=== PATIENT | male | born 1970 | race Caucasian/White ===

== ENCOUNTER 2018-12-14 08:35 | Outpatient (REF) | payer BC, SELFPAY ==
[2018-12-14 12:39] LABS: ALT 42 U/L (12-78); AST 24 U/L (15-37); Albumin 4.4 g/dL (3.4-5.0); Alkaline Phosphatase 34 U/L (46-116); Anion Gap 11.8 mmol/L (3-11); BUN 17 mg/dL (7-18); Bilirubin, Total 1.8 mg/dL (0.2-1.0); CO2 29.2 mmol/L (21.0-32.0); CREATININE 1.03 mg/dL (0.70-1.30); Calcium 9.5 mg/dL (8.5-10.1); Chloride 99 mmol/L (98-107); Cholesterol 280 mg/dL (50-200); Glucose 115 mg/dL (70-100); HDL Cholesterol 90 mg/dL (40-60); LDL CHOLESTEROL 176 mg/dL (<100); Potassium 4.4 mmol/L (3.5-5.1); Sodium 140 mmol/L (136-145); Total Protein 7.7 g/dL (6.4-8.2); Triglyceride 46 mg/dL (30-150)
== END 2018-12-14 08:55 ==
LOC: NCHCN 08:35
PROVIDERS: PCP Nurse Practitioner Family; Visit Provider Nurse Practitioner Family
DX: I10 Essential (primary) hypertension (principal); F41.9 Anxiety disorder, unspecified; J45.30 Mild persistent asthma, uncomplicated; F17.200 Nicotine dependence, unspecified, uncomplicated; F32.9 Major depressive disorder, single episode, unspecified
CPT/HCPCS: 80053; 80061; 83721

== ENCOUNTER 2019-11-30 14:02 | Outpatient (REF) | payer BC, SELFPAY ==
[2019-12-01 14:08] LABS: COVID-19 RT-PCR UVMMC Result Negative (Negative)
== END 2019-11-30 14:22 ==
LOC: LBN 14:02
PROVIDERS: PCP Nurse Practitioner Family; Visit Provider Nurse Practitioner Adult Health
DX: Z11.59 Encounter for screening for other viral diseases (principal)
CPT/HCPCS: U0003

== ENCOUNTER 2020-07-26 11:44 | Outpatient (REF) | payer OTHER, SELFPAY ==
[2020-07-26 14:15] LABS: Anion Gap 9.5 mmol/L (3-11); BUN 14 mg/dL (7-18); CO2 26.5 mmol/L (21.0-32.0); CREATININE 1.08 mg/dL (0.70-1.30); Calcium 9.2 mg/dL (8.5-10.1); Calculated LDL 178 mg/dL (<100); Chloride 103 mmol/L (98-107); Cholesterol 250 mg/dL (<200); Glucose 104 mg/dL (74-106); HDL Cholesterol 59 mg/dL (40-60); Potassium 4.5 mmol/L (3.5-5.1); Sodium 139 mmol/L (136-145); Triglyceride 67 mg/dL (<150)
[2020-07-26 22:09] LABS: PSA, Screening 1.9 ng/mL (0.0-2.5)
== END 2020-07-26 12:04 ==
LOC: NCHCN 11:44
PROVIDERS: PCP Nurse Practitioner Family; Visit Provider Nurse Practitioner Family
DX: I10 Essential (primary) hypertension (principal); E78.5 Hyperlipidemia, unspecified; Z12.5 Encounter for screening for malignant neoplasm of prostate; Z80.42 Family history of malignant neoplasm of prostate
CPT/HCPCS: 80048; 80061; 84153

== ENCOUNTER 2022-05-30 14:46 | Outpatient (REF) | payer SELFPAY ==
[2022-05-30 17:57] LABS: HCT 42.5 % (40.0-50.0); HGB 14.5 g/dL (13.5-17.5); MCH 32.3 pg (27.0-33.0); MCHC 34.1 % (32.0-36.0); MCV 95 fL (80-95); MPV 9.9 fL (8.0-11.0); Platelet Count 161 10^3/uL (130-400); RBC 4.49 10^6/uL (4.36-5.78); RDW 13.4 % (11.8-14.1); RDW-SD 46.9 fL; WBC 7.15 10^3/uL (4.4-10.8)
[2022-05-30 18:33] LABS: ALT 73 U/L (16-63); AST 58 U/L (15-37); Albumin 4.3 g/dL (3.4-5.0); Alkaline Phosphatase 30 U/L (46-116); Anion Gap 18.6 mmol/L (3-11); BUN 19 mg/dL (7-18); Bilirubin, Total 2.1 mg/dL (0.2-1.0); CO2 20.4 mmol/L (21.0-32.0); CREATININE 0.9 mg/dL (0.70-1.30); Calcium 9.1 mg/dL (8.5-10.1); Calculated LDL 108 mg/dL (<100); Chloride 93 mmol/L (98-107); Cholesterol 220 mg/dL (<200); Glucose 80 mg/dL (74-106); HDL Cholesterol 101 mg/dL (40-60); Potassium 3.8 mmol/L (3.5-5.1); Sodium 132 mmol/L (136-145); Total Protein 7.8 g/dL (6.4-8.2); Triglyceride 56 mg/dL (<150)
== END 2022-05-30 14:47 | disposition home or self-care (01) ==
LOC: NCHCN 14:46
PROVIDERS: PCP Nurse Practitioner Family; Visit Provider Nurse Practitioner Family
DX: E78.5 Hyperlipidemia, unspecified (principal); I10 Essential (primary) hypertension; Z00.00 Encounter for general adult medical examination without abnormal findings
CPT/HCPCS: 80053; 80061; 85027

== ENCOUNTER 2023-11-26 05:20 | Outpatient (CLI) | payer BC, SELFPAY ==
[2023-11-26 16:15] LABS: HCT 55.3 % (40.0-50.0); HGB 18.5 g/dL (13.5-17.5); MCH 29.1 pg (27.0-33.0); MCHC 33.5 % (32.0-36.0); MCV 87 fL (80-95); MPV 11.5 fL (8.0-11.0); Platelet Count 244 10^3/uL (130-400); RDW 14.2 % (11.8-14.1); RDW-SD 45.1 fL; WBC 7.77 10^3/uL (4.4-10.8)
[2023-11-26 16:56] LABS: ALT 52 U/L (16-63); AST 26 U/L (15-37); Albumin 4.2 g/dL (3.4-5.0); Alkaline Phosphatase 36 U/L (46-116); Anion Gap 9.3 mmol/L (3-11); BUN 11 mg/dL (7-18); Bilirubin, Total 0.6 mg/dL (0.2-1.0); CO2 29.7 mmol/L (21.0-32.0); Calcium 9.4 mg/dL (8.5-10.1); Chloride 101 mmol/L (98-107); Estimated GFR 90.56 (mL/min/1.73m2); Glucose 92 mg/dL (74-106); Potassium 4.4 mmol/L (3.5-5.1); Sodium 140 mmol/L (136-145); Total Protein 7.7 g/dL (6.4-8.2)
[2023-11-26 18:28] LABS: RBC 6.36 10^6/uL (4.36-5.78)
[2023-11-26 23:28] LABS: Folate 7.9 ng/mL (See Note)
[2023-11-26 23:34] LABS: Vitamin B12 458 pg/mL (211-911)
[2023-12-02 12:40] LABS: Thiamine (Vitamin B1), WB 144 nmol/L (70-180)
== END 2023-11-26 05:21 | disposition home or self-care (01) ==
PROVIDERS: PCP Student in an Organized Health Care Education/Training Program; Visit Provider Student in an Organized Health Care Education/Training Program
DX: F10.20 Alcohol dependence, uncomplicated (principal)
CPT/HCPCS: 36415; 80053; 84153; 85027; 82607; 82746; 84425

== ENCOUNTER 2023-12-10 10:45 | Outpatient (REF) | payer BC, SELFPAY ==
[2023-12-10 15:08] LABS: Abs Immature Grans 0.03 10^3/uL (0.0-0.06); Absolute Basophil Count 0.11 10^3/uL (0.0-0.2); Absolute Eosinophil Count 0.34 10^3/uL (0.0-0.7); Absolute Lymphocyte Count 2.54 10^3/uL (1.2-3.4); Absolute Monocyte Count 0.82 10^3/uL (0.1-0.8); Absolute Neutrophil Count 4.86 10^3/uL (1.2-6.7); Basophils % 1.3 %; Eosinophils % 3.9 %; HCT 52.1 % (40.0-50.0); HGB 17.3 g/dL (13.5-17.5); Immature Grans % 0.3 %; Lymphocytes % 29.2 %; MCH 29.1 pg (27.0-33.0); MCHC 33.2 % (32.0-36.0); MCV 88 fL (80-95); MPV 11.2 fL (8.0-11.0); Monocytes % 9.4 %; Neutrophils % 55.9 %; Platelet Count 247 10^3/uL (130-400); RBC 5.95 10^6/uL (4.36-5.78); RDW 13.8 % (11.8-14.1); RDW-SD 44.2 fL
[2023-12-10 15:20] LABS: Bilirubin Negative (Negative); Blood Negative (Negative); Clarity Clear (Clear); Glucose Negative (Negative); Ketones Negative (Negative); Leukocyte Esterase Negative (Negative); Nitrite Negative (Negative); Specific Gravity 1.025 (1.005-1.025); Urobilinogen 0.2 mg/dL (Up to 0.2)
[2023-12-10 15:46] LABS: ALT 37 U/L (16-63); AST 20 U/L (15-37); Albumin 3.9 g/dL (3.4-5.0); Alkaline Phosphatase 37 U/L (46-116); Anion Gap 13.1 mmol/L (3-11); BUN 23 mg/dL (7-18); Bilirubin, Total 0.5 mg/dL (0.2-1.0); CO2 22.9 mmol/L (21.0-32.0); CREATININE 0.8 mg/dL (0.70-1.30); Chloride 103 mmol/L (98-107); Estimated GFR 106.48 (mL/min/1.73m2); Glucose 92 mg/dL (74-106); Potassium 4.7 mmol/L (3.5-5.1); Sodium 139 mmol/L (136-145)
[2023-12-12 13:26] LABS: Erythropoietin 5.8 mIU/mL (2.6 - 18.5)
== END 2023-12-10 10:46 | disposition home or self-care (01) ==
LOC: NCHCN 10:45
PROVIDERS: PCP Student in an Organized Health Care Education/Training Program; Visit Provider Student in an Organized Health Care Education/Training Program
DX: D75.1 Secondary polycythemia (principal)
CPT/HCPCS: 80053; 82668; 81003; 85025

== ENCOUNTER 2024-02-16 19:12 | Outpatient (REF) | payer BC, SELFPAY ==
[2024-02-16 19:32] LABS: Abs Immature Grans 0.04 10^3/uL (0.0-0.06); Absolute Basophil Count 0.05 10^3/uL (0.0-0.2); Absolute Eosinophil Count 0.15 10^3/uL (0.0-0.7); Absolute Lymphocyte Count 1.87 10^3/uL (1.2-3.4); Absolute Monocyte Count 0.47 10^3/uL (0.1-0.8); Absolute Neutrophil Count 3.95 10^3/uL (1.2-6.7); Basophils % 0.8 %; Eosinophils % 2.3 %; HCT 48.1 % (40.0-50.0); Immature Grans % 0.6 %; Lymphocytes % 28.6 %; MCH 29.2 pg (27.0-33.0); MCHC 33.3 % (32.0-36.0); MCV 88 fL (80-95); MPV 11.2 fL (8.0-11.0); Monocytes % 7.2 %; Neutrophils % 60.5 %; Platelet Count 271 10^3/uL (130-400); RBC 5.48 10^6/uL (4.36-5.78); RDW 14.2 % (11.8-14.1); RDW-SD 45.5 fL; WBC 6.53 10^3/uL (4.4-10.8)
[2024-02-16 20:11] LABS: ALT 40 U/L (16-63); AST 17 U/L (15-37); Albumin 4.1 g/dL (3.4-5.0); Alkaline Phosphatase 35 U/L (46-116); Anion Gap 9.6 mmol/L (3-11); BUN 14 mg/dL (7-18); Bilirubin, Total 0.53 mg/dL (0.2-1.0); CO2 29.4 mmol/L (21.0-32.0); CREATININE 1.1 mg/dL (0.70-1.30); Calcium 9.5 mg/dL (8.5-10.1); Calculated LDL 139 mg/dL (<100); Chloride 103 mmol/L (98-107); Cholesterol 210 mg/dL (<200); Estimated GFR 80.27 (mL/min/1.73m2); Glucose 82 mg/dL (74-106); HDL Cholesterol 62 mg/dL (40-60); Potassium 4.6 mmol/L (3.5-5.1); Sodium 142 mmol/L (136-145); Total Protein 7.4 g/dL (6.4-8.2); Triglyceride 48 mg/dL (<150)
[2024-02-17 20:27] LABS: HIV-1/2 Ag & Ab Screen Negative (Negative)
== END 2024-02-16 19:13 | disposition home or self-care (01) ==
LOC: NCHCN 19:12
PROVIDERS: PCP Student in an Organized Health Care Education/Training Program; Visit Provider Student in an Organized Health Care Education/Training Program
DX: E78.5 Hyperlipidemia, unspecified (principal); D75.1 Secondary polycythemia; F10.20 Alcohol dependence, uncomplicated; Z11.4 Encounter for screening for human immunodeficiency virus [HIV]
CPT/HCPCS: 80053; 80061; 87389; 85025

== ENCOUNTER 2024-03-05 10:34 | Day surgery (SDC) | payer BC, SELFPAY ==
--- NOTE | 2024-03-04 11:55 | W.ANESPRE ---
General Info Date of Service Date Performed: 03/05/24 Height: 6 ft Weight: 80.739 kg Body Mass Index (BMI): 24.1 Surgical Procedure: Operation Date: 03/05/24 12:05 Proposed Procedure Side Surgeon sandy Schulte MD Meds Allergies and Home Medications Allergies Allergy/AdvReac Type Severity Reaction Status Date / Time No Known Allergies Allergy Verified 03/05/24 10:48 Home Medication ?Medication ?Instructions ?Recorded albuterol sulfate 90 mcg/actuation 2 puff inhalation Q6H PRN 02/19/24 aerosol inhaler aspirin 81 mg tablet,delayed 81 mg PO DAILY 02/19/24 release atorvastatin 10 mg tablet 10 mg PO QHS 02/19/24 disulfiram 250 mg tablet 250 mg PO DAILY 02/19/24 lisinopril 10 mg tablet 10 mg PO DAILY 02/19/24 sertraline 50 mg tablet 50 mg PO DAILY 02/19/24 sildenafil 100 mg tablet 100 mg PO DAILY PRN 02/19/24 Current Visit Medications: Current Medications Generic Name Dose Route Start Last Admin Trade Name Freq PRN Reason Stop Dose Admin Ringer's Solution 1,000 mls @ 80 mls/hr 03/05/24 06:00 IV 04/03/24 23:59 INFUSION JD IV Miscellaneous Supplies 1 each 03/05/24 06:00 Iv Access IV 04/03/24 23:59 DIRECTED JD Sodium Chloride 0 ml 03/05/24 06:00 Normal Saline Flush 10 Ml Syr IV 04/03/24 23:59 PRN PRN Sodium Chloride 0 ml 03/05/24 06:00 Normal Saline 10 Ml Vial IJ 04/03/24 23:59 DIRECTED PRN Sterile Water 0 ml 03/05/24 06:00 Water,Injection,Sterile 10 Ml Vial IJ 04/03/24 23:59 DIRECTED PRN PFSH Medical History Medical History Mild intermittent asthma Exercise-induced asthma Erectile dysfunction Generalized anxiety disorder Tobacco use History of alcohol abuse Tobacco Smoking/Tobacco Use Status: Current every day Tobacco Type: smokeless tobacco Alcohol Alcohol Intake: former Year quit: 2023 Substance Use Substance use: Never Substance use type: does not use Vital Signs and Lab Results Vital Signs Most Recent Vital Signs in EMR: Temp Pulse Resp BP Pulse Ox 36.1 C L 67 18 176/103 H 99 03/05/24 10:50 03/05/24 10:50 03/05/24 10:50 03/05/24 10:50 03/05/24 10:50 Lab Results Blood Type / Crossmatch: No Data to Display Complete Blood Count: White Blood Count 6.53 10^3/uL (4.4-10.8) 02/16/24 11:50 Red Blood Count 5.48 10^6/uL (4.36-5.78) 02/16/24 11:50 Hemoglobin 16.0 g/dL (13.5-17.5) 02/16/24 11:50 Hematocrit 48.1 % (40.0-50.0) 02/16/24 11:50 Platelet Count 271 10^3/uL (130-400) 02/16/24 11:50 Complete Metabolic Panel: Sodium 142 mmol/L (136-145) 02/16/24 11:50 Potassium 4.6 mmol/L (3.5-5.1) 02/16/24 11:50 Chloride 103 mmol/L (98-107) 02/16/24 11:50 Carbon Dioxide 29.4 mmol/L (21.0-32.0) 02/16/24 11:50 BUN 14 mg/dL (7-18) 02/16/24 11:50 Creatinine 1.1 mg/dL (0.70-1.30) 02/16/24 11:50 Est GFR (CKD-EPI 2020) 80.27 (mL/min/1.73m2) 02/16/24 11:50 Calcium 9.5 mg/dL (8.5-10.1) 02/16/24 11:50 Albumin 4.1 g/dL (3.4-5.0) 02/16/24 11:50 Glucose 82 mg/dL (74-106) 02/16/24 11:50 Liver Function Panel: Alanine Aminotransferase (ALT/SGPT) 40 U/L (16-63) 02/16/24 11:50 Aspartate Amino Transf (AST/SGOT) 17 U/L (15-37) 02/16/24 11:50 Coagulation Panel: No Data to Display Cardiac Panel: No Data to Display Arterial Blood Gas: No Data to Display Venous Blood Gas: No Data to Display Pancreas Panel: No Data to Display Thyroid Panel: No Data to Display Infectious Disease: HIV (1&2) Ag and Ab, 4th Generation Negative (Negative) 02/16/24 11:50 Blood Cultures: No Data to Display Toxicology Panel: No Data to Display Anesthesia Assessment and Plan Anesthesia History Personal History: No History of Anesthesia Complications Family History: No Family History of Anesthesia Complications Exercise Tolerance Exercise Tolerance: Metabolic Equivalents>4 Pertinent Negatives Pertinent Negatives: No Symptoms of GERD, No Major Cardiovascular Symptoms or Complaints and No History of CVA/TIA Cardiac & Pulmonary Exam Cardiac Exam: Normal S1/S2 Heart Sounds Pulmonary Exam: Clear Bilateral Breath Sounds Implantable Cardiac Device Does patient have a Pacemaker or an ICD?: No Airway Exam Known Difficult Airway: No Mallampati Class: 2 Mouth Opening: Normal (> 3cm) Thyromental Distance: Less than 3 cm Neck Range of Motion: Full ROM Neck Circumference: Normal Teeth Condition: Normal Dentition ASA Classification ASA Score: ASA 2 Emergency Case?: No NPO Status NPO Status: NPO Clears >2 hours, Solids >8 hours Anesthesia Plan Resuscitation Status: Full Code Anesthesia Technique: General Anesthesia Airway Planned: Natural Airway Monitors Used: Standard Monitors Preoperative Comments:: 54 yo male for colo. Sig PMHx: asthma, anxiety, chewing tobacco, former EtOH.
--- NOTE | 2024-03-04 20:25 | W.PM.DSUDISC ---
Date of service: 03/05/24 Time of Service: 14:22 Discharge Plan Disposition Patient Disposition: Home Condition: Good Discharge Details Reason For Visit: screening colonsocopy Attending Provider: Andrew Schulte Primary Care Provider: Gilberto Juarez Home Meds and New Rx's Prescriptions: Continued albuterol sulfate 90 mcg/actuation HFA aerosol inhaler 2 puff inhalation Q6H PRN aspirin 81 mg tablet,delayed release (DR/EC) 81 mg PO DAILY atorvastatin 10 mg tablet 10 mg PO QHS disulfiram 250 mg tablet 250 mg PO DAILY lisinopril 10 mg tablet 10 mg PO DAILY sertraline 50 mg tablet 50 mg PO DAILY sildenafil 100 mg tablet 100 mg PO DAILY PRN Rx Instructions: administer 30 minutes to 4 hours before activity Discontinued bisacodyl [Dulcolax (bisacodyl)] 5 mg tablet,delayed release (DR/EC) 5 mg PO ONCE Qty: 4 0RF Rx Instructions: Take per colonoscopy instructions provided by ordering providers office polyethylene glycol 3350 17 gram/dose powder 17 g PO ONCE Qty: 238 0RF Rx Instructions: Take per colonoscopy instructions provided by ordering providers office Discharge Instructions Instructions: Colon polyps, Diverticulosis Additional Instructions: Zeyad, we are able to complete your colonoscopy today without any difficulty. I did find and remove 1 polyp today. Nothing about it appears worrisome, and we will send it off for formal testing to ensure the nature of the polyp, as that information is used to guide the timing of your next colonoscopy. Incidentally, he also has some diverticulosis. Diverticula are little weak spots in the colon wall that typically accumulate as we get older. They can get infected or inflamed, when that happens, we called diverticulitis. I have attached some general information here about polyps as well as diverticula. Maintaining a diet that is rich in fiber, staying well-hydrated, and avoiding constipation are probably the best strategies to help take care of it. As I mentioned, once we have the results of the polyp report, we will be in touch with final recommendations. If you have any questions in the meantime, please do not hesitate to ask 1. If tolerated, consume a soft, low fiber diet for 1-2 days. 2. Do not drive, drink alcohol, operate machinery, make critical decisions, or do activities that require coordination or balance for 24 hours. 3. Because air was put into your colon during the procedure, expelling air from your rectum (passing gas or farting) is normal. 4. You may not have a bowel movement for 1-3 days because of the colonoscopy prep. This is normal. 5. Go directly to the emergency room if you notice any of the following: Develop chills (warm to touch), or if you have a thermometer and your temperature is above 101 Difficulty breathing or difficultly swallowing Persistent vomiting Severe abdominal pain, other than gas cramps Severe chest pain Black, tarry stools Any bleeding ? exceeding one tablespoon 6. Call your physician if the site where your intravenous was started becomes red, swollen, painful, and warm to touch. 7. Your physician has reviewed your pre-procedure medications. Please continue to take those medications as previously ordered. You will be given specific information/education regarding any changes to your medications before leaving. Stand Alone Forms: Anesthesia Discharge InstEnder Cottrell (DSU) Activity:: Activity as Tolerated Diet:: As Tolerated Discharge Orders Discharge Orders: Discharge Order (Routine); Ordered 03/04/24 Ordered By: Andrew Schulte DS: Diagnosis Discharge Diagnosis (1) Encounter for screening colonoscopy: Status: Acute Asessment and Plan: Follow-up on polypectomy results
--- NOTE | 2024-03-04 20:27 | W.COLOREPORT ---
Date of service: 03/05/24 Time of Service: 14:23 Colonoscopy Report Date of procedure: 03/05/24 Pre-op diagnosis general: screening colonoscopy Post-op diagnosis procedure note: other (Diverticulosis, cecal polyp) Procedure: colonoscopy with polypectomy Surgeon: Andrew Schulte Anesthesia Type: General:No Airway Estimated blood loss (mL): 5 Pathology: other (0.25 cm flat cecal polyp) Complications: None Disposition: same day Indications: Zeyad is a 54 year old man who needs a screening colonscopy Prep: Miralax/Dulcolax Procedure Start Time: 13:55 Procedure End Time: 14:15 Retraction Time: 11 Findings: Diverticulosis, cecal polyp Procedure Description: After the induction of anesthesia, and with the patient in left lateral decubitus position, I began by performing an external anorectal exam.? Perineum and skin were normal, as was the anal verge.? There was no evidence of external hemorrhoids.? Next, I performed a digital rectal exam.? I did not appreciate any abnormal findings.? Next, I advanced a colonoscope into the rectal vault.? I performed retroflexion.? This appeared normal.? Using insufflation, I then advanced the colonoscope beyond the rectal folds and into the sigmoid colon before advancing towards the cecum.? There is diverticulosis, mostly within the sigmoid colon, but there are some diverticula that extend into all other segments..? The scope was noted to be in the cecum by identification of the ileocecal valve and appendiceal orifice.? Just a few centimeters away from the appendix was a 0.25 cm slightly pedunculated polyp. This was removed with cold forcep polypectomy without any issues. I then began withdrawing the colonoscope using repeated irrigation as necessary for full evaluation of the colonic mucosa. ?Once the scope was withdrawn to the level of the rectum, great care was taken to examine portions of the rectal folds.? Finally, the scope was withdrawn and the patient was brought to the same-day surgery recovery unit as the anesthetic wore off. ?The findings and instructions were shared with the patient prior to discharge. [place] Bowel Prep [place] Bowel Prep Right Colon: 3 Left Colon: 3 Transverse Colon: 3 Total Score: 9
[2024-03-05 10:50] VITALS: BP 176/103; PULSE 67; RESP 18; TEMP 36.1; O2SAT 99
[2024-03-05] MEDS: Lactated Ringers 1,000 ML 80 ML IV (11:13)
[2024-03-05 12:06] VITALS: BMI 24.1
--- NOTE | 2024-03-05 14:05 | BOWEL_PTH ---
PATIENT: Zeyad Lynch LOC: [facility] U#:[id number] AGE/SX: 54/M ROOM: RE03/05/[address]: Andrew Schulte MD : 1970 BED: DIS: 03/05/2024 SPEC #: [id number] RECD: 03/05/24 15:18 STATUS: ITZEL REQ #: [id number] QUEENIE: 03/05/24 14:[address]: Andrew Schulte DEPT: Surgical Specimen RECD BY: Alyx Monroe ENTERED: 03/05/24 15:18 SP TYPE: Bowel OTHR DR: Gilberto Juarez Tissues: 1 - BIOPSY BOWEL Procedures: GROSS AND MICRO LEVEL 4 Comments: [id number]
[2024-03-05 14:19] VITALS: BP 140/109; PULSE 74; RESP 16; TEMP 36; O2SAT 99
--- NOTE | 2024-03-05 14:48 | W.ANESPOSTOP ---
Postoperative Evaluation Date, Time and Location Date Performed: 03/05/24 Time Performed: 14:49 Patient Location: Day Surgery Unit Vital Signs Most Recent Imported Vital Signs: Most Recent Vital Signs Temp Pulse Resp BP Pulse Ox 36 C L 74 16 140/109 H 99 03/05/24 14:19 03/05/24 14:19 03/05/24 14:19 03/05/24 14:19 03/05/24 14:19 Pain Score Most Recent Pain Score: Most Recent Pain Score Pain Level 0 03/05/24 14:19 Assessment Mental Status: Awake (Alert & Oriented to Patient Baseline) Airway and Respiratory Function: Patent airway with normal (patient baseline) respiratory exam Cardiovascular Function: Hemodynamically Stable Hydration Status: Adequately Hydrated Nausea & Vomiting: No Nausea or Vomiting Pain: Pt. Denies Any Pain Peripheral Nerve Block: Patient did not receive a nerve block
[2024-03-05 14:51] VITALS: BP 151/114; PULSE 62; RESP 16; TEMP 35.9; O2SAT 99
== END 2024-03-05 14:55 | disposition home or self-care (01) ==
LOC: SUR 10:34
PROVIDERS: PCP Student in an Organized Health Care Education/Training Program; Visit Provider Surgery
PROC: 0DJD8ZZ Inspection of Lower Intestinal Tract, Via Natural or Artificial Opening Endoscopic (ICD-10-PCS; CPT 45378; principal; 2024-03-05 12:00)
DX: Z12.11 Encounter for screening for malignant neoplasm of colon (principal); D12.0 Benign neoplasm of cecum; K57.30 Diverticulosis of large intestine without perforation or abscess without bleeding; J45.20 Mild intermittent asthma, uncomplicated; F17.220 Nicotine dependence, chewing tobacco, uncomplicated; Z81.1 Family history of alcohol abuse and dependence
CPT/HCPCS: 45380; 88305; J2704

== ENCOUNTER 2024-07-29 12:14 | Outpatient (REF) | payer BC, SELFPAY ==
[2024-07-29 14:38] LABS: HCT 46.5 % (40.0-50.0); HGB 15.2 g/dL (13.5-17.5); MCH 28.1 pg (27.0-33.0); MCHC 32.7 % (32.0-36.0); MCV 86 fL (80-95); MPV 9.5 fL (8.0-11.0); Platelet Count 352 10^3/uL (130-400); RBC 5.41 10^6/uL (4.36-5.78); RDW 14.2 % (11.8-14.1); RDW-SD 44.5 fL; WBC 8.39 10^3/uL (4.4-10.8)
[2024-07-29 15:10] LABS: ALT 17 U/L (16-63); AST 12 U/L (15-37); Albumin 3.6 g/dL (3.4-5.0); Alkaline Phosphatase 36 U/L (46-116); Anion Gap 7.7 mmol/L (3-11); BUN 18 mg/dL (7-18); CO2 30.3 mmol/L (21.0-32.0); Calcium 9.4 mg/dL (8.5-10.1); Chloride 103 mmol/L (98-107); Glucose 92 mg/dL (74-106); Potassium 4.4 mmol/L (3.5-5.1); Sodium 141 mmol/L (136-145); TSH (W/Ref FT4) 1.55 uIU/mL (0.36-3.74)
== END 2024-07-29 12:15 | disposition home or self-care (01) ==
LOC: NCHCN 12:14
PROVIDERS: PCP Student in an Organized Health Care Education/Training Program; Visit Provider Student in an Organized Health Care Education/Training Program
DX: R55 Syncope and collapse (principal)
CPT/HCPCS: 80053; 85027; 84443